=== PATIENT | male | born 1985 | race Caucasian/White ===

== ENCOUNTER → 2024-12-06 | Outpatient (CLI) | payer BC, SELFPAY ==
--- NOTE | 2024-12-06 09:45 | XR_ITS ---
Examination: Breast ultrasound, unilateral, left complete Date and time of exam: December 06, 2024 0954 hours INDICATIONS: Palpable lump left breast 3:00 position note is beginning 3 weeks ago Technique: Real-time arenas scale ultrasonographic imaging performed left breast including all 4 quadrants as well as nipple retroareolar and axillary region. Findings: 6:00 hyperechoic nodule probable lipoma 6 x 6 mm 28 mm left axillary lymph node IMPRESSION: BI-RADS Category 3: Probably benign findings Recommend 1 additional 6 month left breast sonogram follow-up to document stability of probably benign lipoma in the 6:00 position left breast Given the patient's presentation, consider diagnostic mammography follow-up
== END | disposition home or self-care (01) ==
PROVIDERS: PCP Physician Assistant; Referring Provider Physician Assistant Medical; Visit Provider Physician Assistant Medical
DX: R92.8 Other abnormal and inconclusive findings on diagnostic imaging of breast (principal)
CPT/HCPCS: 76641

== ENCOUNTER 2025-03-19 10:55 | Day surgery (SDC) | payer BC, SELFPAY ==
[2025-03-19] VITALS (18 sets, daily range): BP systolic 104–152; BP diastolic 68–89; PULSE 62–96; RESP 12–24; TEMP 36.7–36.8; O2SAT 95–100; BMI 32.2
--- NOTE | 2025-03-19 11:42 | SUR.PREOP ---
1135 Patient had a Vagal response to IV start patient became very pale and rigid at this time lasting only 30 secs, with his eyes closed. Oxymask applied to 8L to patient and placed in semifowlers and patient placed back on Vital montior. Patient then opened his eyes and stated he did not remember what happened, and that this is a normal occur for him with intravenous starts. Patient denies nausea or headache at this time. Blood pressure seen slightly evelated during this time,will continue to monitor. 02 left of for comfort at this time. Cold rag applied to forehead as well, rails up x2. Pads applied to rails. 1140 Patients is back to base line with blood pressure back to baseline and color to cheeks back to normal pink tint and breathing seen slow and normal. Will continue to monitor patient all needs met at this time.
[2025-03-19] MEDS: BENZOCAINE 20% (Hurricaine) SPRAY 1 DOSE TOP (13:17)
[2025-03-19] MEDS: SODIUM CHLORIDE 0.9% 500 ML 500 ML 20 ML IV (13:18)
[2025-03-19] MEDS: MIDAZOLAM INJ 1 MG/ML VIAL 2 ML (ASD USE ONLY) IVP (13:18)
[2025-03-19] MEDS: fentaNYL CIT INJ 50 mCg/ML AMP 2ML (ASD USE ONLY) IVP (13:19)
== END 2025-03-19 14:40 | disposition home or self-care (01) ==
PROVIDERS: Referring Provider Specialist; Visit Provider Specialist
PROC: 0DBE8ZX Excision of Large Intestine, Via Natural or Artificial Opening Endoscopic, Diagnostic (ICD-10-PCS; CPT 45380; principal; 2025-03-19 11:45)
PROC: (CPT 43239; 2025-03-19 11:45)
DX: D12.2 Benign neoplasm of ascending colon (principal); D12.3 Benign neoplasm of transverse colon; D12.4 Benign neoplasm of descending colon; D12.5 Benign neoplasm of sigmoid colon; K64.9 Unspecified hemorrhoids; E78.5 Hyperlipidemia, unspecified; Z79.02 Long term (current) use of antithrombotics/antiplatelets; K29.51 Unspecified chronic gastritis with bleeding; K20.91 Esophagitis, unspecified with bleeding; K31.89 Other diseases of stomach and duodenum; K29.81 Duodenitis with bleeding; K22.11 Ulcer of esophagus with bleeding
CPT/HCPCS: 45385; 45380; 43239; J1200; J2250; J3010; J7999; A9270

== ENCOUNTER → 2025-07-27 | Outpatient (CLI) | payer BC, SELFPAY ==
--- NOTE | 2025-07-27 14:00 | XR_ITS ---
Examination: Breast ultrasound, unilateral, left complete Date and time of exam: 2024, 1344 hours INDICATIONS: Left breast lump for 8 months, 6:00 hypoechoic nodule 6 x 6 mm on left breast sonogram December 06, 2024 Technique: Real-time arenas scale ultrasonographic imaging performed left breast including all 4 quadrants as well as nipple retroareolar and axillary region. Findings: 6:00 nodule hypoechoic circumscribed 5 x 7 mm IMPRESSION: BI-RADS Category 2: Benign findings
== END | disposition home or self-care (01) ==
LOC: CDIM 13:28
PROVIDERS: PCP Physician Assistant Medical; Referring Provider Physician Assistant Medical; Visit Provider Physician Assistant Medical
DX: N63.23 Unspecified lump in the left breast, lower outer quadrant (principal)
CPT/HCPCS: 76641